=== PATIENT | female | born 1975 | race American Indian/Alaskan Native ===

== ENCOUNTER 2019-09-10 17:49 | Emergency (ER) | payer SELFPAY ==
[2019-09-10 18:04] VITALS: BP 137/85
[2019-09-10] MEDS ORDERED: FAMOTIDINE 20 MG/2 ML INJ IV ONE (18:19)
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
[2019-09-10] MEDS ORDERED: CYCLOBENZAPRINE 10 MG TAB PO ONE (18:20)
[2019-09-10] MEDS ORDERED: methylPREDNISolone Sod Succinate 125 MG/2 ML INJ IV ONE (18:20)
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
== END 2019-09-10 20:41 | disposition home or self-care (01) ==
LOC: ED 17:49
DX: S16.1XXA Strain of muscle, fascia and tendon at neck level, initial encounter (principal); S39.012A Strain of muscle, fascia and tendon of lower back, initial encounter; S09.90XA Unspecified injury of head, initial encounter; S40.011A Contusion of right shoulder, initial encounter; T78.40XA Allergy, unspecified, initial encounter; J45.909 Unspecified asthma, uncomplicated; Z90.710 Acquired absence of both cervix and uterus; Z91.018 Allergy to other foods; Z79.899 Other long term (current) drug therapy; V89.2XXA Person injured in unspecified motor-vehicle accident, traffic, initial encounter; Y93.89 Activity, other specified; Y92.89 Other specified places as the place of occurrence of the external cause; Y99.8 Other external cause status
CPT/HCPCS: 70450; 72072; 72100; 72125; 73030; 96374; 96375; 99284; J2930